=== PATIENT | female | born 1960 | race African-American/Black ===

== ENCOUNTER 2016-11-20 05:18 | Inpatient (IN) | payer OTHER ==
[~2016-11-20] VITALS: Ht 149.9 cm; Wt 74.9 kg
--- NOTE | ~2016-11-20 | EKG ---
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
--- NOTE | ~2016-11-20 | EKG ---
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: david : 1960 Requested By: Shaista Cordoba Order Number: [id number] MD: Stanislav Marie Measurements Intervals [place] Rate: 95 P: 62 DC: 113 QRS: -1 QRSD: 91 T: 191 QT: 358 QTc: 450 Interpretive Statements Sinus rhythm Borderline short DC interval Probable left atrial enlargement LVH with secondary repolarization abnormality ST depression, consider ischemia, diffuse lds Electronically Signed On 11-21-2016 12:57:39 CDT by Stanislav Marie [email or web address] <ELECTRONICALLY SIGNED> By: Stanislav Marie MD 11/21/16 1257 0507 0507 Stanislav Marie MD /CELESTE
--- NOTE | ~2016-11-20 | EKG ---
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
--- NOTE | ~2016-11-20 | 2DMMODE ---
[place] [address] [address] [place] [address] 2 D/M-MODE ECHOCARDIOGRAM Name: STANISLAWJOSIAH Brenda Room #: 444-P [facility] IN M.R.#: [id number] Admission: 11/20/16 Attend Phys: Daquan Gutierrez, Discharge: Date of : 62 Date of Service: 11/20/16 1156 Report #: [id number] THIS REPORT FOR: //name// APPROVED REPORT Study performed: 11/20/2016 10:29:26 EXAM: Comprehensive 2D, Doppler, and color-flow Echocardiogram Patient Location: Bedside Room #: 444 Status: routine Other Information Study Quality: Adequate Indications Congestive Heart Failure COPD Pulmonary Hypertension Dyspnea Hypertension/HDD 2D Dimensions LVEF(%): 60.19 (>50%) IVSd: 7.37 (7-11mm) LVOT Diam: 16.55 (18-24mm) LVDd: 45.83 mm PWd: 6.97 (7-11mm) Ascending Ao: 25.10 (22-36mm) LVDs: 31.17 (25-40mm) Aortic Root: 23.18 mm IVC: 26.00 mm Pena's LVEF: 60.19 % Volumes Left Atrial Volume (Systole) Single Plane 4CH: 74.23 mL Single Plane 2CH: 77.64 mL LA ESV Index: 50.00 mL/m2 Aortic Valve AoV Peak Nnamdi.: 1.36 m/s AO Peak Gr.: 7.38 mmHg LVOT Max P.33 mmHg LVOT Max V: 1.15 m/s TRINIDAD Vmax: 1.83 cm2 Mitral Valve E/A Ratio: 2.3 MV Decel. Time: 145.13 ms [facility] [address] [place] [address] 2 D/M-MODE ECHOCARDIOGRAM Name: JUAN MIGUELYOHANA BUTCHERTY Brenda Room #: 444-P [facility] IN ..#: [id number] Admission: 11/20/16 Attend Phys: Daquan Gutierrez, Discharge: Date of : 62 Date of Service: 11/20/16 1156 Report #: [id number] MV E Max Nnamdi.: 0.98 m/s MV A Nnamdi.: 0.43 m/s MV PHT: 42.09 ms IVRT: 115.34 ms Pulmonary Valve PV Peak Nnamdi.: 1.06 m/s PV Peak Gr.: 4.52 mmHg Pulmonary Vein P Vein S: 0.42 m/s P Vein A: 0.22 m/s P Vein D: 0.52 m/s P Vein A Dur.: 110.7 msec P Vein S/D Ratio: 0.81 Tricuspid Valve TR Peak Nnamdi.: 3.65 m/s RAP Estimate: 15.00 mmHg TR Peak Gr.: 53.32 mmHg PA Pressure: 68.00 mmHg Left Ventricle The left ventricle is normal size. There is normal LV segmental wall motion. There is normal left ventricular wall thickness. Left ventricular systolic function is normal. LVEF is 60-65%. Grade III diastolic dysfunction Right Ventricle The right ventricle is normal size. The right ventricular systolic function is normal. Atria Left atrium is severely dilated. Right atrium is dilated. Aortic Valve The aortic valve is normal in structure. No aortic regurgitation is present. There is no aortic valvular stenosis. Mitral Valve Moderate mitral annular calcification Mild mitral regurgitation. No evidence of mitral valve stenosis. Tricuspid Valve The tricuspid valve is normal in structure. There is mild tricuspid regurgitation. The right atrial pressure is estimated at 15 mmHg. There is moderate-severe pulmonary hypertension. Pulmonic Valve The pulmonary valve is normal in structure. Trace to mild pulmonic [facility] [address] [place] [address] 2 D/M-MODE ECHOCARDIOGRAM Name: JOSIAH DOVER Room #: 444-P [facility] IN [facility]#: [id number] Admission: 11/20/16 Attend Phys: Daquan Gutierrez, Discharge: Date of : 62 Date of Service: 11/20/16 1156 Report #: [id number] regurgitation. Great Vessels The aortic root is normal in size. The inferior vena cava is dilated with no inspiratory collapse. Pericardium There is no pericardial effusion. <Conclusion> Left ventricular systolic function is normal. LVEF is 60-65%. Grade III diastolic dysfunction Left atrium is severely dilated. The aortic valve is normal in structure. No aortic valvular stenosis. Moderate mitral annular calcification Mild mitral regurgitation. Pulmonary artery pressure of 60mmHg There is no pericardial effusion. <ELECTRONICALLY SIGNED> By: Kai Noe MD, FACC 11/20/16 1156 1156 1156 Kai Noe MD, FACC /INF
[~2016-11-20 05:18] MED LIST: ASPIR 8181 MG PO; ATORVASTATIN CA80 MG PO; CARDIZEM120 MG PO; COMBIVENT RESPIM4 GM INH; DILTIAZEM 24HR120 M2; KLONOPIN0.5 MG PO; LASIX 40 MG TAB40 M2 PO; LIDODERM 5%1 PATC1 TOP; NEXIUM40 MG PO; NORCO 5-325 TA1 EACH PO; SINGULAIR 10 MG10 M1 PO; SYMBICORT160 MCG/4. INH; ZOLOFT100 MG PO
[2016-11-20 05:27] VITALS: BP 136/76
[2016-11-20] MEDS ORDERED: LIORESAL 10 MG10 MG PO (05:35)
[2016-11-20 05:44] LABS: ABG SAMPLE TYPE ARTERIAL; BE(vivo) 0.5 mmol/L (-2 to +3); HCO3 24.2 mmol/L (22.0-26.0); LACTATE 2.02 mmol/L (0.5-2.0); O2(CT) 15.4 mL/dL (15.0-23.0); O2Hb 88.5 % (92.0-98.0); pH 7.446 (7.360-7.450); sO2 90.4 % (92.0-98.0); tCO2 25.3 mmol/L (24.0-30.0)
[2016-11-20 05:45] LABS: PO2 55.7 mmHg (80.0-100.0); STICK SITE R.RADIAL
[2016-11-20 05:49] LABS: HEMATOCRIT 34.6 % (37.0-47.0); HEMOGLOBIN 12.1 gm/dL (12.0-15.0); MCH 34.7 pg (26.0-34.0); MCV 99.2 fL (80.0-100.0); RBC 3.48 mil/uL (4.20-5.00); RDW 13.2 % (10.5-14.5); WBC 10.6 thou/uL (4.0-11.0)
[2016-11-20 05:57] LABS: ANION GAP 11 mmol/L (7-16); BUN 13 mg/dL (7-18); CALCIUM 9.5 mg/dL (8.5-10.1); CHLORIDE 103 mmol/L (98-107); CO2 26 mmol/L (21-32); CREATININE 0.9 mg/dL (0.6-1.0); GLUCOSE 297 mg/dL (74-106); POTASSIUM 3.3 mmol/L (3.5-5.1); SODIUM 140 mmol/L (136-145)
[2016-11-20 06:05] LABS: TROPONIN-I < 0.04 ng/mL (<0.04-0.07)
[2016-11-20 10:01] VITALS: BP 160/86
[2016-11-20 17:23] VITALS: BP 136/80
[2016-11-20 19:55] VITALS: BP 139/91
[2016-11-21 03:30] VITALS: BP 136/87
[2016-11-21 08:09] VITALS: BP 120/79
[2016-11-21 13:23] LABS: CALCIUM 10.2 mg/dL (8.5-10.1); CREATININE 1.1 mg/dL (0.6-1.0); POTASSIUM 3.7 mmol/L (3.5-5.1)
[2016-11-21 16:51] VITALS: BP 122/84
[2016-11-21 21:28] VITALS: BP 128/72
[2016-11-22 04:19] VITALS: BP 102/55
[2016-11-22 05:23] LABS: HEMATOCRIT 35.2 % (37.0-47.0); HEMOGLOBIN 11.8 gm/dL (12.0-15.0); MCH 33.3 pg (26.0-34.0); MCHC 33.4 g/dL (28.0-37.0); MCV 99.6 fL (80.0-100.0); PLATELET COUNT 231 thou/uL (150-400); RBC 3.53 mil/uL (4.20-5.00); RDW 13.3 % (10.5-14.5); WBC 18.1 thou/uL (4.0-11.0)
[2016-11-22 05:25] LABS: MANUAL DIFF YES
[2016-11-22 05:43] LABS: CALCIUM 9.9 mg/dL (8.5-10.1); CREATININE 0.9 mg/dL (0.6-1.0); MAGNESIUM 1.7 mg/dL (1.8-2.4)
[2016-11-22 07:45] LABS: ABSOLUTE NEUTROPHILS 16.7 thou/uL (1.4-8.2); TOTAL CELL COUNT 100
[2016-11-22 08:48] VITALS: BP 115/77
[2016-11-22 16:53] VITALS: BP 129/86
[2016-11-22] MEDS ORDERED: SERTRALINE HCL50 MG PO (17:01)
[2016-11-22 19:15] VITALS: BP 119/65
[2016-11-23 04:08] LABS: GLYCOHEMOGLOBIN (HGB A1C) 6.7 % (4.8-5.6)
[2016-11-23 05:46] VITALS: BP 108/69
[2016-11-23 06:17] LABS: CALCIUM 9.8 mg/dL (8.5-10.1); CREATININE 1.1 mg/dL (0.6-1.0); MAGNESIUM 1.9 mg/dL (1.8-2.4); POTASSIUM 3.4 mmol/L (3.5-5.1)
[2016-11-23 08:00] VITALS: BP 106/61
[2016-11-23] MEDS ORDERED: NORCO 10-325 T1 EACH PO (10:26)
[2016-11-23] MEDS ORDERED: METFORMIN HCL500 MG PO (10:31)
[2016-11-23] MEDS ORDERED: DEMADEX20 MG PO (10:31)
[2016-11-23] MEDS ORDERED: PREDNISONE 10 M10 MG PO (10:31)
[2016-11-23] MEDS ORDERED: K-DUR 20 MEQ T20 MEQ PO (10:31)
[2016-11-23] MEDS ORDERED: GLUCOTROL5 MG PO (10:31)
[2016-11-23 11:05] VITALS: BP 108/69
== END 2016-11-23 13:14 | disposition home or self-care (01) | DRG 291 ==
LOC: ER 05:18 → 4S 08:13 → EROBS 08:13 → 4S 10:12
PROVIDERS: Emergency Medicine; Nurse Practitioner
DX: I11.0 Hypertensive heart disease with heart failure (principal); J96.21 Acute and chronic respiratory failure with hypoxia; J44.1 Chronic obstructive pulmonary disease with (acute) exacerbation; I50.33 Acute on chronic diastolic (congestive) heart failure; I27.2 Other secondary pulmonary hypertension; E78.5 Hyperlipidemia, unspecified; K21.9 Gastro-esophageal reflux disease without esophagitis; D72.829 Elevated white blood cell count, unspecified; E83.42 Hypomagnesemia; E87.6 Hypokalemia; G47.30 Sleep apnea, unspecified; M79.7 Fibromyalgia; E11.9 Type 2 diabetes mellitus without complications; Z98.62 Peripheral vascular angioplasty status; Z90.710 Acquired absence of both cervix and uterus; Z90.49 Acquired absence of other specified parts of digestive tract; Z87.891 Personal history of nicotine dependence; Z79.82 Long term (current) use of aspirin; Z79.899 Other long term (current) drug therapy
CPT/HCPCS: 10100

== ENCOUNTER 2017-03-30 13:18 | Inpatient (IN) | payer OTHER ==
[~2017-03-30] VITALS: Ht 149.9 cm; Wt 69.9 kg
--- NOTE | ~2017-03-30 | EKG ---
[place] [address] [address] [place] [address] ELECTROCARDIOGRAM REPORT Name: STANISLAWJOSIAH Gutierrez Room #: 437-P ADM IN M.R.#: [id number] Admission: 03/30/17 Attend Phys: Rigoberto Cochran DO Discharge: Date of : 62 Report #: [id number] THIS REPORT FOR: //name// [facility] ED Test Date: 2017-03-30 Test Time: 14:15:09 Pat Name: JOSIAH DOVER Department: Room: 437 P Gender: F Associate Manager Affiliate Marketing: Paula ESCAMILLA : 1960 Requested By: Ella Cohn Order Number: [id number] MD: Stanislav Marie Measurements Intervals [place] Rate: 73 P: 32 [place]: 148 QRS: 8 QRSD: 95 T: 176 QT: 408 QTc: 450 Interpretive Statements Sinus rhythm Probable left atrial enlargement Repol abnrm, severe global ischemia (LM/MVD) Baseline wander in lead(s) II,III,aVF Compared to ECG 03/30/2017 13:49:48 No significant changes Electronically Signed On 03-30-2017 21:49:07 CDT by Stanislav Marie [email or web address] <ELECTRONICALLY SIGNED> By: Stanislav Marie MD 03/30/17 2149 1415 1415 Stanislav Marie MD /EPI
--- NOTE | ~2017-03-30 | EKG ---
[address] [address] [place] [address] ELECTROCARDIOGRAM REPORT Name: JOSIAH DOVER [id number] Admission: 03/30/17 Attend Phys: Discharge: Date of : 62 Report #: [id number] THIS REPORT FOR: //name// [facility] ED Test Date: 2017-03-30 Test Time: 13:49:48 Pat Name: JOSIAH DOVER Department: Room: Gender: F Payroll Officer: Paula ESCAMILLA : 1960 Requested By: Ella Cohn Order Number: [id number] MD: Stanislav Marie Measurements Intervals [place] Rate: 69 P: 33 [place]: 149 QRS: 11 QRSD: 91 T: 180 QT: 435 QTc: 466 Interpretive Statements Sinus rhythm Left atrial enlargement RSR' in V1 or V2, probably normal variant Repol abnrm suggests ischemia, diffuse leads Baseline wander in lead(s) II Compared to ECG 11/21/2016 05:07:26 RSR' in V1 or V2 now present Left ventricular hypertrophy no longer present ST (T wave) deviation no longer present Possible ischemia still present Electronically Signed On 03-30-2017 15:36:22 CDT by Stanislav Marie [email or web address] <ELECTRONICALLY SIGNED> By: Stanislav Marie MD 03/30/17 1536 1349 1349 Stanislav Marie MD /EPI
--- NOTE | ~2017-03-30 | EKG ---
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
--- NOTE | ~2017-03-30 | 2DMMODE ---
[facility] [address] [place] [address] 2 D/M-MODE ECHOCARDIOGRAM Name: STANISLAWJOSIAH Brenda Room #: 437-P [facility] IN ..#: [id number] Admission: 03/30/17 Attend Phys: Rigoberto Cochran, Discharge: 03/31/17 Date of : 62 Date of Service: 04/01/17 1310 Report #: [id number] THIS REPORT FOR: //name// APPROVED REPORT Study performed: 03/31/2017 08:05:02 EXAM: Comprehensive 2D, Doppler, and color-flow Echocardiogram Patient Location: Bedside Room #: 437 Status: routine BSA: 1.65 BP: 93/53 mmHg Other Information Study Quality: Adequate Indications COPD CAD Chest Pain 2D Dimensions RVDd: 28.89 mm LVEF(%): 67.62 (>50%) IVSd: 10.05 (7-11mm) LVOT Diam: 16.74 (18-24mm) LVDd: 45.68 mm PWd: 9.89 (7-11mm) Ascending Ao: 25.37 (22-36mm) LVDs: 28.56 (25-40mm) Aortic Root: 23.02 mm IVC: 23.00 mm Pena's LVEF: 67.62 % Volumes Left Atrial Volume (Systole) Single Plane 4CH: 131.07 mL Single Plane 2CH: 96.95 mL LA ESV Index: 72.00 mL/m2 Aortic Valve AoV Peak Nnamdi.: 1.37 m/s AO Peak Gr.: 7.47 mmHg LVOT Max P.46 mmHg LVOT Max V: 0.93 m/s TRINIDAD Vmax: 1.50 cm2 Mitral Valve E/A Ratio: 3.7 [facility] [place] [address] [place] [address] 2 D/M-MODE ECHOCARDIOGRAM Name: JOSIAH DOVER Room #: 437-[facility].#: [id number] Admission: 03/30/17 Attend Phys: Rigoberto Cochran, Discharge: 03/31/17 Date of : 62 Date of Service: 04/01/17 1310 Report #: [id number] MV Decel. Time: 156.28 ms MV E Max Nnamdi.: 1.17 m/s MV A Nnamdi.: 0.32 m/s MV PHT: 45.32 ms IVRT: 106.11 ms Pulmonary Valve PV Peak Nnamdi.: 1.02 m/s PV Peak Gr.: 4.18 mmHg Pulmonary Vein P Vein S: 0.28 m/s P Vein A: 0.17 m/s P Vein D: 0.42 m/s P Vein A Dur.: 92.3 msec P Vein S/D Ratio: 0.67 Tricuspid Valve TR Peak Nnamdi.: 3.49 m/s RAP Estimate: 15.00 mmHg TR Peak Gr.: 48.70 mmHg Left Ventricle The left ventricle is normal size. There is normal LV segmental wall motion. There is normal left ventricular wall thickness. The left ventricular systolic function is normal. The left ventricular ejection fraction is within the normal range. LVEF is 65%. Severe diastolic dysfunction is present (restrictive filling). Right Ventricle The right ventricle is normal size. The right ventricular systolic function is normal. Atria Left atrium is severely dilated. Right atrium is dilated. Aortic Valve The aortic valve is minimally sclerotic Trace aortic regurgitation is present. There is no aortic valvular stenosis. Mitral Valve Moderate mitral annular calcification. Mild mitral regurgitation. No evidence of mitral valve stenosis. Tricuspid Valve The tricuspid valve is normal in structure. There is mild tricuspid regurgitation. The right atrial pressure is estimated at 15 mmHg. PAP is estimated at 60 mmHg. There is moderate-[place] [address] 2 D/M-MODE ECHOCARDIOGRAM Name: JOSIAH DOVER Room #: 437-P [facility] IN [facility]#: [id number] Admission: 03/30/17 Attend Phys: Rigoberto Cochran, Discharge: 03/31/17 Date of : 62 Date of Service: 04/01/17 1310 Report #: [id number] Pulmonic Valve The pulmonary valve is normal in structure. Mild pulmonic regurgitation. Great Vessels The aortic root is normal in size. IVC is dilated and collapses <50% with inspiration. Pericardium There is no pericardial effusion. <Conclusion> The left ventricular systolic function is normal. There is normal LV segmental wall motion. LVEF is 65%. Severe diastolic dysfunction is present (restrictive filling). Left atrium is severely dilated. The aortic valve is minimally sclerotic. Trace aortic regurgitation, no stenosis. Moderate mitral annular calcification. Mild mitral regurgitation. Pulmonary artery pressure of 60mmHg There is no pericardial effusion. <ELECTRONICALLY SIGNED> By: Kai Noe MD, FACC 04/01/17 131 09 09 Kai Noe MD, FACC /INF
[~2017-03-30 13:18] MED LIST changes: +DEMADEX20 MG PO; +GLUCOTROL5 MG PO; +K-DUR 20 MEQ T20 MEQ PO; +LIORESAL 10 MG10 MG PO; +METFORMIN HCL500 MG PO; +NORCO 10-325 T1 EACH PO; +PREDNISONE 10 M10 MG PO; +SERTRALINE HCL50 MG PO
[2017-03-30 13:19] VITALS: BP 129/80
[2017-03-30 14:03] LABS: ABSOLUTE NEUTROPHILS 3.9 thou/uL (1.4-8.2); BASOPHILS 0.7 % (0.0-2.0); EOSINOPHILS 0.2 % (0.0-3.0); HEMATOCRIT 32.3 % (37.0-47.0); HEMOGLOBIN 10.7 gm/dL (12.0-15.0); LYMPHOCYTES 29.4 % (24.0-44.0); MCH 33.3 pg (26.0-34.0); MCHC 33.2 g/dL (28.0-37.0); MCV 100.3 fL (80.0-100.0); MONOCYTES 9.5 % (1.0-8.0); PLATELET COUNT 197 thou/uL (150-400); POLYS 60.2 % (36.0-66.0); RBC 3.22 mil/uL (4.20-5.00); RDW 13.2 % (10.5-14.5); WBC 6.4 thou/uL (4.0-11.0)
[2017-03-30 14:04] LABS: MANUAL DIFF NO
[2017-03-30 14:11] LABS: ANION GAP 7 mmol/L (7-16); BUN 13 mg/dL (7-18); CALCIUM 8.8 mg/dL (8.5-10.1); CHLORIDE 102 mmol/L (98-107); CO2 28 mmol/L (21-32); CREATININE 0.9 mg/dL (0.6-1.0); GLUCOSE 247 mg/dL (74-106); POTASSIUM 3.7 mmol/L (3.5-5.1); SODIUM 137 mmol/L (136-145)
[2017-03-30 14:19] LABS: ALBUMIN 3.7 g/dL (3.4-5.0); ALKALINE PHOSPHATASE 113 U/L (46-116); SGOT 30 U/L (15-37); SGPT 60 U/L (30-65); TOTAL BILIRUBIN 1.7 mg/dL (<0.1-1.0); TROPONIN-I < 0.04 ng/mL (<0.06)
[2017-03-30 16:04] LABS: AMP/METHAMP Negative (Negative); BARBITURATES Negative (Negative); BENZODIAZEPINES Negative (Negative); COCAINE Negative (Negative); METHADONE Negative (Negative); OPIATES POSITIVE (Negative); PCP Negative (Negative); THC Negative (Negative)
[2017-03-30 16:53] VITALS: BP 102/64
[2017-03-30 17:02] VITALS: BP 104/55
[2017-03-30 21:57] VITALS: BP 86/60
[2017-03-30 23:55] VITALS: BP 93/53
[2017-03-31 05:45] LABS: ALBUMIN 2.9 g/dL (3.4-5.0); ALKALINE PHOSPHATASE 95 U/L (46-116); ANION GAP 7 mmol/L (7-16); BUN 14 mg/dL (7-18); CALCIUM 7.9 mg/dL (8.5-10.1); CHLORIDE 105 mmol/L (98-107); CO2 27 mmol/L (21-32); CREATININE 0.9 mg/dL (0.6-1.0); GLUCOSE 288 mg/dL (74-106); MAGNESIUM 1.4 mg/dL (1.8-2.4); POTASSIUM 3.7 mmol/L (3.5-5.1); SGOT 23 U/L (15-37); SGPT 47 U/L (30-65); SODIUM 139 mmol/L (136-145); TOTAL BILIRUBIN 1.2 mg/dL (<0.1-1.0); TOTAL PROTEIN 5.5 g/dL (6.4-8.2); TROPONIN-I < 0.04 ng/mL (<0.06)
[2017-03-31 06:05] LABS: FOLIC ACID 9.7 ng/mL (8.6-58.9); TSH 0.74 uIU/mL (0.358-3.740)
[2017-03-31 08:00] VITALS: BP 117/67
[2017-03-31 10:04] VITALS: BP 117/67
[2017-03-31 10:19] VITALS: BP 117/67
== END 2017-03-31 10:31 | disposition home or self-care (01) | DRG 204 ==
LOC: ER 13:18 → EROBS 15:36 → 4S 17:07
PROVIDERS: Internal Medicine Geriatric Medicine; Physician Assistant
DX: R07.81 Pleurodynia (principal); F17.210 Nicotine dependence, cigarettes, uncomplicated; M79.7 Fibromyalgia; K21.9 Gastro-esophageal reflux disease without esophagitis; J44.9 Chronic obstructive pulmonary disease, unspecified; G47.30 Sleep apnea, unspecified; N64.4 Mastodynia; I10 Essential (primary) hypertension; I25.10 Atherosclerotic heart disease of native coronary artery without angina pectoris; E11.9 Type 2 diabetes mellitus without complications; E78.00 Pure hypercholesterolemia, unspecified; Z95.5 Presence of coronary angioplasty implant and graft; Z90.89 Acquired absence of other organs; I25.2 Old myocardial infarction
CPT/HCPCS: 10100